=== PATIENT | male | born 1960 ===

== ENCOUNTER 2018-05-06 10:53 | Outpatient (CLI) | payer BC ==
[2018-05-06] MEDS ORDERED: Iopamidol 370 76% 100 ML VIAL ONE (11:24)
--- NOTE | 2018-05-06 13:26 | CT ---
CT OF THE CHEST WITH CONTRAST: Comparison: None. History: Abnormal chest x-ray with elevated hemidiaphragm. Chronic cough. Technique: Multiple contiguous axial images were obtained in a CT of the chest with contrast. Coronal and sagittal reformats were performed. FINDINGS: The left hemidiaphragm is higher than the right. The heart is normal in size without focal cardiac ab normality. No hilar or mediastinal lymphadenopathy are seen. No mediastinal masses are present. No pneumothorax or pleural effusion are seen. No suspicious pulmonary nodules are seen. No focal infi ltrates are seen in the lungs. The visualized subdiaphragmatic structures are unremarkable. The chest wall soft tissues are unremark able. Mild degenerative changes are seen in the spine. IMPRESSION: 1. No evidence of acute intrathoracic abnormality. 2. Slightly elevated left hemidiaphragm. POS: [facility]
== END 2018-05-06 10:54 | disposition home or self-care (01) ==
LOC: BICCT 10:53
PROVIDERS: ATTEND Nurse Practitioner Family
DX: J98.6 Disorders of diaphragm (principal); R05 Cough; R93.89 Abnormal findings on diagnostic imaging of other specified body structures
CPT/HCPCS: 71260